=== PATIENT | female | born 1985 | race African-American/Black ===

== ENCOUNTER 2017-12-09 22:34 | Emergency (ER) | payer OTHER ==
[~2017-12-09] VITALS: Ht 162.6 cm; Wt 77.1 kg
[2017-12-09] MEDS ORDERED: ATIVAN2 MG ORAL (22:50)
[2017-12-09 23:00] VITALS: BP 138/52
[2017-12-09] MEDS ORDERED: Morphine Sulfate 4mg/ml Inj IVP ONE (23:15)
[2017-12-10 00:56] LABS: HEMATOCRIT 36.7 % (37.0-47.0); HEMOGLOBIN 12.5 G/DL (12.0-16.0); MEAN CORPUSCULAR VOLUME 82 FL (80-99); PLATELET COUNT 211 K/UL (150-450); RED CELL DISTRIBUTION WIDTH 11.1 % (11.6-14.8); WHITE BLOOD COUNT 7.1 K/UL (4.8-10.8)
[2017-12-10 00:58] LABS: BILIRUBIN, URINE NEGATIVE (NEGATIVE); COLOR,URINE PALE YELLOW; GLUCOSE, URINE (UA) 3+ (NEGATIVE); KETONES,URINE 4+ (NEGATIVE); LEUKOCYTE ESTERASE ,URINE 2+ (NEGATIVE); NITRITE,URINE NEGATIVE (NEGATIVE); PH,URINE 8 (4.5-8.0); PROTEIN,URINE 1+ (NEGATIVE); UROBILINOGEN,URINE NORMAL MG/DL (0.0-1.0)
[2017-12-10] MEDS ORDERED: Morphine Sulfate 4mg/ml Inj IVP ONE (01:00)
[2017-12-10 01:02] LABS: ANION GAP 13 mmol/L (5-15); BLOOD UREA NITROGEN 15 mg/dL (7-18); CALCIUM 9.1 MG/DL (8.5-10.1); CARBON DIOXIDE 24 MMOL/L (21-32); CHLORIDE 101 MMOL/L (98-107); POTASSIUM 3.3 MMOL/L (3.5-5.1); SODIUM 138 MMOL/L (136-145)
[2017-12-10 01:06] LABS: ALANINE AMINOTRANSFERASE 24 U/L (12-78); ALBUMIN/GLOBULIN RATIO 1.1 (1.0-2.7); ALKALINE PHOSPHATASE 47 U/L (46-116); ASPARTATE AMINO TRANSFERASE 15 U/L (15-37); BILIRUBIN,TOTAL 0.4 MG/DL (0.2-1.0)
[2017-12-10 01:23] LABS: APPEARANCE,URINE SLIGHTLY CLOUDY
[2017-12-10 01:30] VITALS: BP 144/63
[2017-12-10] MEDS ORDERED: cefTRIAXone 1 GM in NS 55 ML IVPB ONE (02:00)
[2017-12-10] MEDS ORDERED: HYDROmorphone 1mg/ml Carpuject IVP ONE (02:45)
[2017-12-10] MEDS ORDERED: Metoclopramide 10mg/2ml Inj IVP ONE (02:45)
[2017-12-10] MEDS ORDERED: NORCO 5-325 TA1 EACH ORAL (03:48)
[2017-12-10] MEDS ORDERED: KEFLEX500 MG ORAL (03:48)
[2017-12-10] MEDS ORDERED: REGLAN10 MG ORAL (03:48)
[2017-12-10 04:00] VITALS: BP 129/58
--- NOTE | 2017-12-10 04:05 | Emergency Room Report ---
History of Present Illness General Chief Complaint: Nausea, Vomiting, and Diarrhea Source: Patient Present Illness HPI 32-year-old female presents ED for evaluation. Patient states since this evening she's been experiencing abdominal pain with vomiting and diarrhea. Pain is 10 out of 10, sharp, nonradiating. States she's had this pain before. History of colitis. Denies sick contacts or recent travel. Denies recent antibiotic use. No other aggravating relieving factors. Denies any other associated symptoms Allergies: Coded Allergies: No Known Allergies (Unverified , 12/09/17) Patient History Past Medical History: none Past Surgical History: none Pertinent Family History: none Social History: Denies: smoking, alcohol use, drug use Last Menstrual Period: 11/21/2017 Now: No : 1 Para: 1 Immunizations: UTD Reviewed Nursing Documentation: PMH: Agreed; PSxH: Agreed Nursing Documentation-PMH Past Medical History: No History, Except For History Of Psychiatric Problem: Yes - Anxiety Review of Systems All Other Systems: negative except mentioned in HPI Physical Exam Vital Signs Date Time Temp Pulse Resp B/P (MAP) Pulse Ox O2 Delivery O2 Flow Rate FiO2 12/09/17 22:45 97.5 63 18 138/85 100 Room Air 97.5 Sp02 EP Interpretation: reviewed, normal General Appearance: alert, GCS 15, non-toxic, mild distress Head: normocephalic, atraumatic Eyes: bilateral eye normal inspection, bilateral eye PERRL ENT: hearing grossly normal, normal pharynx, no angioedema, normal voice Neck: full range of motion, supple/symm/no masses Respiratory: chest non-tender, lungs clear, normal breath sounds, speaking full sentences Cardiovascular #1: regular rate, rhythm, no edema Cardiovascular #2: 2+ carotid (R), 2+ carotid (L), 2+ radial (R), 2+ radial (L) , 2+ dorsalis pedis (R), 2+ dorsalis pedis (L) Gastrointestinal: normal bowel sounds, soft, non-distended, no guarding, no rebound, tenderness Rectal: deferred Genitourinary: normal inspection, no CVA tenderness Musculoskeletal: back normal, gait/station normal, normal range of motion, non- tender Neurologic: alert, oriented x3, responsive, motor strength/tone normal, sensory intact, speech normal Psychiatric: judgement/insight normal, memory normal, mood/affect normal, no suicidal/homicidal ideation Reflexes: 3+ bicep (R), 3+ bicep (L), 3+ tricep (R), 3+ tricep (L), 3+ knee (R) , 3+ knee (L) Skin: normal color, no rash, warm/dry, well hydrated Lymphatic: no adenopathy Medical Decision Making Diagnostic Impression: Primary Impression: Abdominal pain Qualified Codes: R10.9 - Unspecified abdominal pain Additional Impression: UTI (urinary tract infection) ER Course Hospital Course 32-year-old F presents to ED with abdominal pain Differential diagnosis includes-appendicitis, cholecystitis, small bowel obstruction, gastritis, Clinical course Patient placed on stretcher. After initial history and physical I ordered labs , IV fluids, pain medications and CT scan Labs - no leukocytosis, electrolytes ok, LFTs normal, UA + bacteria Despite 2 rounds of morphine patient continues to complain of pain. Asking when she can get her Dilaudid. States that last time she had colitis she was given Reglan and Dilaudid CT scan shows no acute pathology . Given IV Rocephin in ED I agreed to provide her with one round of Dilaudid. Reglan. On reassessment pain improved. Patient asked if I will discharge her on Dilaudid. Given essentially negative workup I am concerned about her medication requirements. however on cures, last prescriptions for pain medcations was in June 2017. I agreed to provide her with short course of [place], Reglan. Patient states she has a referral for GI since she's had similar pain in the past. I feel this is a highly complex case requiring extensive working including EKG/ Rhythm strip, Xray/CT/US, Blood/urine lab work, repeat exams while in ED, and administration of strong opiates/narcotics for pain control, admission to hospital or close patient follow up. Diagnosis - abdominal pain, UTI Stable and discharged to home with Rx [place], Reglan, Keflex. Followup with PMD. Return to ED if symptoms recur or worsen Labs Test 12/09/17 23:43 12/10/17 00:15 Urine Color Pale yellow Urine Appearance Slightly cloudy Urine pH 8 (4.5-8.0) Urine Specific [place] 1.015 (1.005-1.035) Urine Protein 1+ (NEGATIVE) Urine Glucose (UA) 3+ (NEGATIVE) Urine Ketones 4+ (NEGATIVE) Urine Occult Blood 3+ (NEGATIVE) Urine Nitrite Negative (NEGATIVE) Urine Bilirubin Negative (NEGATIVE) Urine Urobilinogen Normal MG/DL (0.0-1.0) Urine Leukocyte Esterase 2+ (NEGATIVE) Urine RBC 10-15 /HPF (0 - 2) Urine WBC 40-60 /HPF (0 - 2) Urine Squamous Epithelial Cells Moderate /LPF (NONE/OCC) Urine Bacteria Few /HPF (NONE) Urine HCG, Qualitative Negative (NEGATIVE) White Blood Count 7.1 K/UL (4.8-10.8) Red Blood Count 4.50 M/UL (4.20-5.40) Hemoglobin 12.5 G/DL (12.0-16.0) Hematocrit 36.7 % (37.0-47.0) Mean Corpuscular Volume 82 FL (80-99) Mean Corpuscular Hemoglobin 27.7 PG (27.0-31.0) Mean Corpuscular Hemoglobin Concent 33.9 G/DL (32.0-36.0) Red Cell Distribution Width 11.1 % (11.6-14.8) Platelet Count 211 K/UL (150-450) Mean Platelet Volume 6.8 FL (6.5-10.1) Neutrophils (%) (Auto) % (45.0-75.0) Lymphocytes (%) (Auto) % (20.0-45.0) Monocytes (%) (Auto) % (1.0-10.0) Eosinophils (%) (Auto) % (0.0-3.0) Basophils (%) (Auto) % (0.0-2.0) Sodium Level 138 MMOL/L (136-145) Potassium Level 3.3 MMOL/L (3.5-5.1) Chloride Level 101 MMOL/L (98-107) Carbon Dioxide Level 24 MMOL/L (21-32) Anion Gap 13 mmol/L (5-15) Blood Urea Nitrogen 15 mg/dL (7-18) Creatinine 1.0 MG/DL (0.55-1.30) Estimat Glomerular Filtration Rate > 60 mL/min (>60) Glucose Level 235 MG/DL (74-106) Calcium Level 9.1 MG/DL (8.5-10.1) Total Bilirubin 0.4 MG/DL (0.2-1.0) Aspartate Amino Transf (AST/SGOT) 15 U/L (15-37) Alanine Aminotransferase (ALT/SGPT) 24 U/L (12-78) Alkaline Phosphatase 47 U/L (46-116) Total Protein 7.8 G/DL (6.4-8.2) Albumin 4.0 G/DL (3.4-5.0) Globulin 3.8 g/dL Albumin/Globulin Ratio 1.1 (1.0-2.7) Lipase 65 U/L (73-393) CT/MRI/US Diagnostic Results CT/MRI/US Diagnostic Results : Imaging Test Ordered: CT A/P Impression 2cm corpus luteum cyst R ovary, no acute abdominal process Last Vital Signs Date Time Temp Pulse Resp B/P (MAP) Pulse Ox O2 Delivery O2 Flow Rate FiO2 12/10/17 03:16 97.5 12/09/17 22:45 63 18 138/85 100 Room Air Status: improved Disposition: HOME, SELF-CARE Condition: Stable Scripts Cephalexin* (KEFLEX*) 500 Mg Capsule 500 MG ORAL Q6H, #28 CAP 0 Refills Prov: Neil Burns MD 12/10/17 Metoclopramide Hcl* (REGLAN*) 10 Mg Tablet 10 MG ORAL THREE TIMES A DAY for 7 Days, TAB Prov: Neil Burns MD 12/10/17 Hydrocodone Bit/Acetaminophen 5-325* (NORCO 5-325*) 1 Each Tablet 1 TAB ORAL Q6H PRN for For Pain, #10 TAB 0 Refills Prov: Neil Burns MD 12/10/17 Patient Instructions: Abdominal Pain, Adult, [id number] Neil Burns MD Dec 10, 2017 04:05
[2017-12-10 04:10] VITALS: BP 129/58
--- NOTE | 2017-12-10 10:20 | Diagnostic Imaging Report ---
Clinical Indication: Abdominal pain Technique: No oral contrast utilized, per emergency room physician request IV administration nonionic contrast. Venous phase spiral acquisition obtained through the abdomen and pelvis. Multiplanar reconstructions were generated. Total dose length product 729.72 mGycm. CTDIvol(s) 14.12 mGy. Dose reduction achieved using automated exposure control Comparison: none Findings: The appendix is normal. There is suggestion of mild wall thickening of the colon, most striking in the proximal colon. No evidence of diverticulosis or diverticulitis. No small bowel distention. No free or loculated peritoneal air or fluid is evident. There is a small sliding-type hiatal hernia. The stomach is otherwise unremarkable. The duodenum is unremarkable. There is nonspecific edema of the periportal fat. The liver is otherwise unremarkable. The gallbladder is nondistended. There is suggestion of pericholecystic edema, however. The pancreas, spleen, adrenals, kidneys are unremarkable. No retroperitoneal or mesenteric mass or adenopathy. No pelvic mass or adenopathy. The uterus is enlarged, possibly containing fibroids. A collapsed follicle is seen in the right ovary. The included lung bases are clear. The bones are unremarkable. Impression: Equivocal mild colon wall thickening, likely artifact of under distention but if real could indicate colitis No acute process otherwise Nonspecific edema of the periportal fat Nonspecific mild pericholecystic edema. However, no gallstones are evident in the gallbladder is nondistended and there is no edema of the pericholecystic fat Collapse right ovarian follicle. This agrees with the preliminary interpretation provided overnight by [facility] teleradiology service. The CT scanner at [facility] is accredited by the [employer] and the scans are performed using protocols designed to limit radiation exposure to as low as reasonably achievable to attain images of sufficient resolution adequate for diagnostic evaluation.
== END 2017-12-10 04:10 | disposition home or self-care (01) ==
LOC: EMR 23:00
DX: R10.9 Unspecified abdominal pain (principal); N39.0 Urinary tract infection, site not specified; F41.9 Anxiety disorder, unspecified
CPT/HCPCS: 36415; 74177; 80053; 81003; 81025; 83690; 85025; 87086; 96374; 96375; 99284; J0696; J1170; J2270; J2405; J2765; Q9967; S0028

== ENCOUNTER 2019-10-20 11:40 | Emergency (ER) | payer OTHER ==
[~2019-10-20] VITALS: Ht 162.6 cm; Wt 77.1 kg
[~2019-10-20 11:40] MED LIST: ATIVAN2 MG ORAL; KEFLEX500 MG ORAL; NORCO 5-325 TA1 EACH ORAL; REGLAN10 MG ORAL
[2019-10-20 11:45] VITALS: BP 145/83
[2019-10-20] MEDS ORDERED: HYDROmorphone 1mg/ml Carpuject IVP ONE (12:15)
[2019-10-20] MEDS ORDERED: Omnipaque-300 100ml vial INJ PRN (12:15)
[2019-10-20] MEDS ORDERED: Metoclopramide 10mg/2ml Inj IVP ONE ×2 (12:15→14:30)
--- NOTE | 2019-10-20 12:32 | NUR ---
ED Nurse Note: PT. AAOX4. AMBULATORY. WALKED IN TO ER FROM HOME. PER TP, SHE HAS BEEN HAVING BAD WITH N/V/D SINCE 0600 OF TODAY WITH BILE COLORED EMESIS. PT. DENIES ANY RECENT ALCOHOL USE
--- NOTE | 2019-10-20 12:32 | Emergency Room Report ---
History of Present Illness General Chief Complaint: Abdominal Pain Source: Patient Present Illness HPI 33-year-old female presents ED for abdominal pain. Started yesterday. A right- sided, 9 out of 10, nonradiating. Notes multiple episodes of nausea and vomiting. Denies diarrhea. Denies fevers or chills. States she has had abdominal pain in the past but states this feels different. Denies chest pain. No other aggravating relieving factors. Denies any other associated symptoms Allergies: Coded Allergies: No Known Allergies (Unverified , 12/09/17) Patient History Past Medical History: none Past Surgical History: none Pertinent Family History: none Social History: Denies: smoking, alcohol use, drug use Now: No Immunizations: UTD Reviewed Nursing Documentation: PMH: Agreed; PSxH: Agreed Nursing Documentation-PMH Past Medical History: No Stated History Review of Systems All Other Systems: negative except mentioned in HPI Physical Exam Vital Signs Date Time Temp Pulse Resp B/P (MAP) Pulse Ox O2 Delivery O2 Flow Rate FiO2 10/20/19 11:45 98.2 66 19 145/83 99 Room Air Sp02 EP Interpretation: reviewed, normal General Appearance: no apparent distress, alert, GCS 15, non-toxic Head: normocephalic, atraumatic Eyes: bilateral eye normal inspection, bilateral eye PERRL ENT: hearing grossly normal, normal pharynx, no angioedema, normal voice Neck: full range of motion, supple/symm/no masses Respiratory: chest non-tender, lungs clear, normal breath sounds, speaking full sentences Cardiovascular #1: regular rate, rhythm, no edema Cardiovascular #2: 2+ carotid (R), 2+ carotid (L), 2+ radial (R), 2+ radial (L) , 2+ dorsalis pedis (R), 2+ dorsalis pedis (L) Gastrointestinal: normal bowel sounds, soft, non-distended, no guarding, no rebound, tenderness - RUQ Rectal: deferred Genitourinary: normal inspection, no CVA tenderness Musculoskeletal: back normal, normal range of motion, gait/station normal, non- tender Neurologic: alert, motor strength/tone normal, oriented x3, sensory intact, responsive, speech normal Psychiatric: judgement/insight normal, memory normal, mood/affect normal, no suicidal/homicidal ideation Reflexes: 3+ bicep (R), 3+ bicep (L), 3+ tricep (R), 3+ tricep (L), 3+ knee (R) , 3+ knee (L) Skin: no rash Lymphatic: no adenopathy Medical Decision Making Diagnostic Impression: Primary Impression: Colitis Additional Impression: Abdominal pain Qualified Codes: R10.11 - Right upper quadrant pain ER Course Hospital Course 33-year-old F presents to ED with abdominal pain Differential diagnosis includes-appendicitis, cholecystitis, small bowel obstruction, gastritis, Clinical course Patient placed on stretcher. After initial history and physical I ordered labs , IV fluids, pain medications and CT scan Labs - no leukocytosis, electrolytes ok, LFTs normal, UA unremarkable CT scan shows colitis, no organ acute pathology On reassessment patient states her pain is somewhat improved but persist after Dilaudid. Patient has been here previously and has asked for multiple rounds of Dilaudid. I agreed to provide her 1 dose of morphine. Will discharge to home with prescription for antibiotics and pain meds. Safe for discharge for close outpatient follow-up. States she has a PMD I feel this is a highly complex case requiring extensive working including EKG/ Rhythm strip, Xray/CT/US, Blood/urine lab work, repeat exams while in ED, and administration of strong opiates/narcotics for pain control, admission to hospital or close patient follow up. Diagnosis - abdominal pain, colitis Stable and discharged to home with Rx Reglan, [place], Cipro, Flagyl, Bentyl. Followup with PMD. Return to ED if symptoms recur or worsen Labs Test 10/20/19 12:00 10/20/19 12:43 White Blood Count 9.1 K/UL (4.8-10.8) Red Blood Count 4.95 M/UL (4.20-5.40) Hemoglobin 13.2 G/DL (12.0-16.0) Hematocrit 40.7 % (37.0-47.0) Mean Corpuscular Volume 82 FL (80-99) Mean Corpuscular Hemoglobin 26.7 PG (27.0-31.0) Mean Corpuscular Hemoglobin Concent 32.4 G/DL (32.0-36.0) Red Cell Distribution Width 11.7 % (11.6-14.8) Platelet Count 261 K/UL (150-450) Mean Platelet Volume 5.7 FL (6.5-10.1) Neutrophils (%) (Auto) 78.5 % (45.0-75.0) Lymphocytes (%) (Auto) 16.9 % (20.0-45.0) Monocytes (%) (Auto) 3.5 % (1.0-10.0) Eosinophils (%) (Auto) 0.1 % (0.0-3.0) Basophils (%) (Auto) 1.1 % (0.0-2.0) Sodium Level 140 MMOL/L (136-145) Potassium Level 5.1 MMOL/L (3.5-5.1) Chloride Level 102 MMOL/L (98-107) Carbon Dioxide Level 22 MMOL/L (21-32) Anion Gap 16 mmol/L (5-15) Blood Urea Nitrogen 10 mg/dL (7-18) Creatinine 0.8 MG/DL (0.55-1.30) Estimat Glomerular Filtration Rate > 60 mL/min (>60) Glucose Level 178 MG/DL (74-106) Calcium Level 9.3 MG/DL (8.5-10.1) Total Bilirubin 0.4 MG/DL (0.2-1.0) Aspartate Amino Transf (AST/SGOT) 39 U/L (15-37) Alanine Aminotransferase (ALT/SGPT) 37 U/L (12-78) Alkaline Phosphatase 51 U/L (46-116) Total Protein 8.2 G/DL (6.4-8.2) Albumin 3.9 G/DL (3.4-5.0) Globulin 4.3 g/dL Lipase 74 U/L (73-393) Human Chorionic Gonadotropin, Qual Negative (NEGATIVE) Urine Color Pale yellow Urine Appearance Clear Urine pH 6.5 (4.5-8.0) Urine Specific [place] 1.020 (1.005-1.035) Urine Protein 1+ (NEGATIVE) Urine Glucose (UA) 2+ (NEGATIVE) Urine Ketones 3+ (NEGATIVE) Urine Blood 3+ (NEGATIVE) Urine Nitrite Negative (NEGATIVE) Urine Bilirubin Negative (NEGATIVE) Urine Urobilinogen Normal MG/DL (0.0-1.0) Urine Leukocyte Esterase 2+ (NEGATIVE) Urine RBC 2-4 /HPF (0 - 2) Urine WBC 2-4 /HPF (0 - 2) Urine Squamous Epithelial Cells Moderate /LPF (NONE/OCC) Urine Bacteria Few /HPF (NONE) Urine HCG, Qualitative Negative (NEGATIVE) CT/MRI/US Diagnostic Results CT/MRI/US Diagnostic Results : Imaging Test Ordered: CT A/P Impression Comparison: 12/10/2017 Findings: Lack of enteric contrast limits assessment of the GI tract. The appendix is normal. There is suggestion of mild and colonic wall thickening, appearance similar to the previous study. There is some fatty mural infiltration of the ascending colon wall, also evident previously. There are colonic diverticula. No evidence of diverticulitis. No small bowel distention. There is a small sliding-type hiatal hernia. The stomach and duodenum are otherwise unremarkable. No free or loculated intraperitoneal gas or fluid is evident. The gallbladder, liver, bile ducts, pancreas, spleen, adrenals, kidneys are unremarkable. Periportal edema and pericholecystic fluid are not evident currently. No retroperitoneal or mesenteric mass or adenopathy. No pelvic mass or adenopathy. Normal uterus and ovaries. Previously demonstrated The included lung bases are clear. The bones are unremarkable. Impression: Limited assessment of the GI tract, due to lack of enteric contrast administration Equivocal mild pancolonic wall thickening, similar to prior exam of 12/10/2017. If real, could indicate mild colitis changes. However, similar to the prior exam suggests this may be baseline for this patient or could be an artifact of under distention. Correlate with clinical findings. No acute or significant abnormality otherwise Last Vital Signs Date Time Temp Pulse Resp B/P (MAP) Pulse Ox O2 Delivery O2 Flow Rate FiO2 10/20/19 11:45 66 19 Room Air 10/20/19 11:45 98.2 145/83 (103) 99 Status: improved Disposition: HOME, SELF-CARE Condition: Stable Scripts Metoclopramide Hcl* (REGLAN*) 10 Mg Tablet 10 MG ORAL THREE TIMES A DAY for 5 Days, TAB Prov: Neil Burns MD 10/20/19 Dicyclomine Hcl* (DICYCLOMINE HCL*) 10 Mg Capsule 10 MG ORAL QID, #20 CAP Prov: Neil Burns MD 10/20/19 Metronidazole* (FLAGYL*) 500 Mg Tablet 500 MG ORAL THREE TIMES A DAY, #21 TAB Prov: Neil Burns MD 10/20/19 Ciprofloxacin Hcl* (CIPROFLOXACIN HCL*) 500 Mg Tablet 500 MG ORAL Q12H, #14 TAB 0 Refills Prov: Neil Burns MD 10/20/19 Hydrocodone Bit/Acetaminophen 5-325* (NORCO 5-325*) 1 Each Tablet 1 TAB ORAL Q6H PRN for For Pain, #10 TAB 0 Refills Prov: Neil Burns MD 10/20/19 Referrals: [facility],REFERR[facility] (PCP) Neil Burns MD Oct 20, 2019 12:32
[2019-10-20 12:41] LABS: BASOPHILS % (AUTO) 1.1 % (0.0-2.0); EOSINOPHILS % (AUTO) 0.1 % (0.0-3.0); HEMATOCRIT 40.7 % (37.0-47.0); HEMOGLOBIN 13.2 G/DL (12.0-16.0); LYMPHOCYTES % (AUTO) 16.9 % (20.0-45.0); MEAN CORPUSCULAR VOLUME 82 FL (80-99); MONOCYTES % (AUTO) 3.5 % (1.0-10.0); NEUTROPHILS % (AUTO) 78.5 % (45.0-75.0); PLATELET COUNT 261 K/UL (150-450); RED BLOOD COUNT 4.95 M/UL (4.20-5.40); RED CELL DISTRIBUTION WIDTH 11.7 % (11.6-14.8); WHITE BLOOD COUNT 9.1 K/UL (4.8-10.8)
[2019-10-20 12:51] LABS: ANION GAP 16 mmol/L (5-15); BLOOD UREA NITROGEN 10 mg/dL (7-18); CALCIUM 9.3 MG/DL (8.5-10.1); CARBON DIOXIDE 22 MMOL/L (21-32); CHLORIDE 102 MMOL/L (98-107); CREATININE 0.8 MG/DL (0.55-1.30); POTASSIUM 5.1 MMOL/L (3.5-5.1); SODIUM 140 MMOL/L (136-145)
[2019-10-20 12:53] LABS: APPEARANCE,URINE CLEAR; BILIRUBIN, URINE NEGATIVE (NEGATIVE); COLOR,URINE PALE YELLOW; GLUCOSE, URINE (UA) 2+ (NEGATIVE); KETONES,URINE 3+ (NEGATIVE); LEUKOCYTE ESTERASE ,URINE 2+ (NEGATIVE); NITRITE,URINE NEGATIVE (NEGATIVE); PH,URINE 6.5 (4.5-8.0); PROTEIN,URINE 1+ (NEGATIVE); UROBILINOGEN,URINE NORMAL MG/DL (0.0-1.0)
[2019-10-20 12:56] LABS: ALANINE AMINOTRANSFERASE 37 U/L (12-78); ALBUMIN 3.9 G/DL (3.4-5.0); ALKALINE PHOSPHATASE 51 U/L (46-116); ASPARTATE AMINO TRANSFERASE 39 U/L (15-37); BILIRUBIN,TOTAL 0.4 MG/DL (0.2-1.0)
--- NOTE | 2019-10-20 13:17 | NUR ---
ED Nurse Note: Pt went on CT accompanied by tech, on stable condition.
[2019-10-20 13:46] VITALS: BP 146/84
--- NOTE | 2019-10-20 14:15 | Diagnostic Imaging Report ---
Clinical Indication: Abdominal pain Technique: No oral contrast utilized, per emergency room physician request IV administration nonionic contrast. Venous phase spiral acquisition obtained through the abdomen and pelvis. Multiplanar reconstructions were generated. Total dose length product 559 mGycm. CTDIvol(s) 10 mGy. Dose reduction achieved using automated exposure control Comparison: 12/10/2017 Findings: Lack of enteric contrast limits assessment of the GI tract. The appendix is normal. There is suggestion of mild and colonic wall thickening, appearance similar to the previous study. There is some fatty mural infiltration of the ascending colon wall, also evident previously. There are colonic diverticula. No evidence of diverticulitis. No small bowel distention. There is a small sliding-type hiatal hernia. The stomach and duodenum are otherwise unremarkable. No free or loculated intraperitoneal gas or fluid is evident. The gallbladder, liver, bile ducts, pancreas, spleen, adrenals, kidneys are unremarkable. Periportal edema and pericholecystic fluid are not evident currently. No retroperitoneal or mesenteric mass or adenopathy. No pelvic mass or adenopathy. Normal uterus and ovaries. Previously demonstrated The included lung bases are clear. The bones are unremarkable. Impression: Limited assessment of the GI tract, due to lack of enteric contrast administration Equivocal mild pancolonic wall thickening, similar to prior exam of 12/10/2017. If real, could indicate mild colitis changes. However, similar to the prior exam suggests this may be baseline for this patient or could be an artifact of under distention. Correlate with clinical findings. No acute or significant abnormality otherwise The CT scanner at [facility] is accredited by the [employer] and the scans are performed using protocols designed to limit radiation exposure to as low as reasonably achievable to attain images of sufficient resolution adequate for diagnostic evaluation.
--- NOTE | 2019-10-20 14:25 | NUR ---
ED Nurse Note: CT results were in. Dr. Bunrs at bedside. Offered ice chips as requested by pt.
[2019-10-20] MEDS ORDERED: Morphine Sulfate 4mg/ml Inj (IV USE ONLY) IVP ONE (14:30)
[2019-10-20] MEDS ORDERED: DICYCLOMINE HCL10 MG ORAL (14:40)
[2019-10-20] MEDS ORDERED: METRONIDAZOLE500 MG ORAL (14:40)
[2019-10-20] MEDS ORDERED: CIPROFLOXACIN500 M2 ORAL (14:40)
[2019-10-20] MEDS ORDERED: NORCO 5-325 TA1 EACH ORAL (14:40)
[2019-10-20] MEDS ORDERED: REGLAN10 MG ORAL (14:40)
[2019-10-20 14:55] VITALS: BP 149/86
--- NOTE | 2019-10-20 14:55 | NUR ---
ER DISCHARGE NOTE: Patient is cleared to be discharged per ERMD, pt is aox4, on room air, with stable vital signs. pt was given dc and prescription instructions, pt was able to verbalize understanding, pt id band and iv site removed without complications. pt is able to ambulate with steady gait. pt took all belongings.
== END 2019-10-20 14:55 | disposition home or self-care (01) ==
LOC: EMR 12:15
DX: K52.9 Noninfective gastroenteritis and colitis, unspecified (principal); R10.11 Right upper quadrant pain
CPT/HCPCS: 36415; 74177; 80053; 81003; 81025; 83690; 84703; 85025; 96361; 96374; 96375; 96376; J1170; J2270; J2765; J7030; Q9967; Z7502; 99284

== ENCOUNTER 2019-10-20 21:00 | Emergency (ER) | payer OTHER ==
[~2019-10-20] VITALS: Ht 162.6 cm; Wt 79.4 kg
[~2019-10-20 21:00] MED LIST changes: +CIPROFLOXACIN500 M2 ORAL; +DICYCLOMINE HCL10 MG ORAL; +METRONIDAZOLE500 MG ORAL
--- NOTE | 2019-10-20 21:10 | NUR ---
ED Nurse Note: Pt ambulated into ED from home Co pain 10/10 in lower right abdomen described as sharp, twisting, continous. Pt reports being in ED earlier his afternoon for same complaint; pt reports ERMD did CT scan, xrays, lab work -- pt was cleared by previous ERMD for discharge. Pt restless, moaning, VS elevated. ERMD aware. Awaiting ERMD at bedside
[2019-10-20 21:13] VITALS: BP 174/82
[2019-10-20] MEDS ORDERED: DiphenhydrAMINE 50mg/ml Inj IVP ONE (21:15)
[2019-10-20] MEDS: Ketorolac 30mg Inj IV ONE ×2 (21:15→21:24)
[2019-10-20] MEDS ORDERED: Metoclopramide 10mg/2ml Inj IVP ONE (21:15)
--- NOTE | 2019-10-20 21:22 | Emergency Room Report ---
History of Present Illness General Chief Complaint: Abdominal Pain Source: Patient Present Illness HPI Disclaimer: Please note that this report is being documented using [employer] technology. This can lead to erroneous entry secondary to incorrect interpretation by the dictating instrument. HPI: 33-year-old female presents for evaluation of abdominal pain. She was seen earlier today with similar complaints. She is complaining of right-sided abdominal pain since yesterday with intractable nausea and vomiting. Labs including CBC, CMP, lipase, hCG and UA performed and were within normal limits. CT scan showed possible mild colitis. The patient was discharged on multiple antibiotics, antiemetics and narcotic pain medication. She returns stating that she has received no relief from these medications since discharge. She is requesting more IV Dilaudid. Review previous provider chart shows that she was behaving similarly prior to discharge. She denies any chest pain, palpitations , fever, chills. No dysuria or hematuria reported or diarrhea. States she is no longer truly vomiting just retching because she has nothing in her system. States she was even unable to tolerate the sublingual Zofran because it made her gag. PMH: Colitis, chronic abdominal pain PSH: None reported Allergies: None reported Social Hx: Denies alcohol or drug use Allergies: Coded Allergies: No Known Allergies (Unverified , 12/09/17) Patient History Last Menstrual Period: 09/2019 Nursing Documentation-PM Past Medical History: No Stated History Review of Systems All Other Systems: negative except mentioned in HPI Physical Exam Vital Signs Date Time Temp Pulse Resp B/P (MAP) Pulse Ox O2 Delivery O2 Flow Rate FiO2 10/20/19 21:03 99.0 68 18 174/82 (112) 98 Room Air General: Awake and alert, appears uncomfortable HEENT: NC/AT. EOMI. Cardiovascular: RRR. S1 and S2 normal. No murmur appreciated Resp: Normal work of breathing. No cough, wheezing or crackles appreciated Abdomen: Abdomen is soft, obese, nondistended. Voluntary guarding and tender to palpation in the right upper quadrant, epigastrium, right lower quadrant, periumbilical though little tenderness in the left upper and lower quadrants. Skin: Intact. No abrasions, laceration or rash over the exposed skin MSK: Normal tone and bulk. Moving all extremities. No obvious deformity. Neuro: Awake and alert. Mentating appropriately. Procedures Ultrasound Ultrasound : Consent: Verbal Ultrasound: normal Patient Tolerated: Well Complications: None Progress CBD diameter 0.28 cm. Gallbladder wall thickness 0.5 cm. No pericholecystic fluid, no stones seen. Possible sludge. Medical Decision Making Diagnostic Impression: Primary Impression: Abdominal pain Additional Impression: Colitis ER Course 33-year-old female seen previously today for complaints of abdominal pain diagnosed with colitis presents stating that she is not having significant relief of the antiemetics and pain medication prescribed to her. Complaining of pain in the right lower quadrant. Review of labs and imaging from previous admission show a she was appropriately treated for colitis. Will not repeat labs or imaging at this time. We will perform bedside ultrasound, give IV fluids, IV antiemetics and Toradol. Reevaluation Time: 02:56 Last Vital Signs Date Time Temp Pulse Resp B/P (MAP) Pulse Ox O2 Delivery O2 Flow Rate FiO2 10/20/19 21:03 99.0 68 18 174/82 (112) 98 Room Air Reevaluation Impression Patient required additional doses of pain medication antiemetics. Finally a small dose of Haldol was given which significantly improve the patient's symptoms. I performed a bedside ultrasound showing normal caliber of the CBD as well as the gallbladder wall. There were no stones visible and otherwise was an unremarkable exam except for possible sludge. This may represent some biliary colic though again she was diagnosed with colitis earlier today by CT scan and has not yet started taking the medications to treat it. She is now feeling well enough to return home. She will start her medications as soon as possible. She will follow-up with her PMD and return with any new or worsening symptoms. She understands and agrees with this treatment plan. Disposition: HOME, SELF-CARE Condition: Improved Dariel Diaz MD Oct 20, 2019 21:22
[2019-10-20] MEDS ORDERED: Morphine Sulfate 4mg/ml Inj (IV USE ONLY) IVP ONE (22:00)
--- NOTE | 2019-10-20 22:58 | NUR ---
ED Nurse Note: Pt reported nausea unrelieved; ERMD aware, awaiting orders
--- NOTE | 2019-10-20 23:15 | NUR ---
ED Nurse Note: Nausea medication administered, pt tolerated well no s/s of distress noted.
[2019-10-20 23:30] VITALS: BP 143/75
--- NOTE | 2019-10-20 23:30 | NUR ---
ED Nurse Note: Pt recieved haldol; tolerated well no s/s of distress noted. Pt sleeping in bed. ERMD aware, VSS.
--- NOTE | 2019-10-20 23:30 | NUR ---
ED Nurse Note: Pt resting in bed; pt reports pain 3/10 but nausea still unrelieved. ERMD aware
[2019-10-20] MEDS ORDERED: Haloperidol 5mg/ml Inj IM ONE (23:45)
--- NOTE | 2019-10-21 01:30 | NUR ---
ED Nurse Note: Pt sleeping in bed, no s/s of distress noted. VSS.
[2019-10-21 01:32] VITALS: BP 142/82
--- NOTE | 2019-10-21 01:32 | NUR ---
ED Nurse Note: ERMD at bedside for US
--- NOTE | 2019-10-21 01:57 | NUR ---
ER DISCHARGE NOTE: Patient is cleared to be discharged home per ERMD, pt is aox4, on room air, with stable vital signs. pt was given dc instructions, pt was able to verbalize understanding, pt id band and iv site removed without complications. pt is able to ambulate with steady gait. pt took all belongings.
[2019-10-21 01:59] VITALS: BP 142/83
== END 2019-10-21 01:57 | disposition home or self-care (01) ==
LOC: EMR 21:38
DX: K52.9 Noninfective gastroenteritis and colitis, unspecified (principal); R10.9 Unspecified abdominal pain
CPT/HCPCS: 96361; 96372; 96374; 96375; J1200; J1630; J2270; J2405; J2765; J7030; Z7502; 99284